=== PATIENT | male | born 1990 | race Caucasian/White ===

== ENCOUNTER 2023-06-10 17:34 | Emergency (ER) | payer SELFPAY ==
[2023-06-10 17:38] VITALS: BP 140/81; BMI 26.2
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
[2023-06-10] MEDS: DACRIOSE EYE WASH SOLUTION 100 ML OPHTH (18:33)
--- NOTE | 2023-06-10 18:52 | EDRN ---
Discharge instructions given to patient by SHELIA Mehta. Verbalized understanding.
[2023-06-11 05:56] LABS: HIV Combo Negative (Negative)
[2023-06-11 06:04] LABS: Hepatitis B Surface Antigen Negative (Negative)
[2023-06-11 06:21] LABS: Hepatitis C Antibody Negative (Negative)
[2023-06-11 07:17] LABS: Hepatitis B Surface Antibody Positive
== END 2023-06-10 18:55 | disposition home or self-care (01) ==
LOC: EMR 17:34
PROVIDERS: Nurse Practitioner; EMERGENCY PHYSICIAN Emergency Medicine; FAMILY PHYSICIAN Nurse Practitioner Family
DX: Z77.21 Contact with and (suspected) exposure to potentially hazardous body fluids (principal); F17.200 Nicotine dependence, unspecified, uncomplicated
CPT/HCPCS: 99283; 86706; 86803; 87340; 87389

== ENCOUNTER 2024-05-18 18:35 | Emergency (ER) | payer BC, SELFPAY ==
[2024-05-18 18:40] VITALS: BP 153/94
--- NOTE | 2024-05-18 21:32 | ED.GENMED ---
History of Present Illness
General
Chief Complaint: Male Genito-Urinary Symptoms
Source: patient
Exam Limitations: none
Time Seen by Provider: 05/18/24 21:00
History of Present Illness
History of Present Illness:
33-year-old male presents complaining of persistent pain to left testicle and scrotum starting about 1 week ago. His husky jumped on him a week ago and landed on his scrotum. He denies hematuria. He denies any discharge or dysuria. Denies any
urinary symptoms or abdominal pain. He has a history of epididymitis. No fevers. No other complaints at this time
Past History
Past History
ED Past Medical History: None
ED Past Surgical History: Other (hernia)
Social History
Tobacco: Smoker
Alcohol: Occasional
Drug: None
Personal: Single
Living: alone
Employment: Employed
Phy Exam
Physical Exam
Physical Exam:
General: Well-appearing male no acute respiratory distress
HEENT normocephalic atraumatic
exam: Circumcised male. Scrotum is not swollen he is tender over the left cycle. Reflex intact no inguinal hernia palpated
Extremities: No cyanosis
Course
Orders/Labs/Results
Orders:
Orders
05/18/24 18:45
US Scrotum Urgent
Comment:
Reason For Exam: pain from dog jumping on him
Vital Signs
Initial and Last Documented VS:
Initial Vital Signs
Temp Pulse Resp BP Pulse Ox
97.7 F 80 16 153/94 100
05/18/24 18:40 05/18/24 18:40 05/18/24 18:40 05/18/24 18:40 05/18/24 18:40
Last Documented Vital Signs
Temp Pulse Resp BP Pulse Ox
97.7 F 80 16 153/94 100
05/18/24 18:40 05/18/24 18:40 05/18/24 18:40 05/18/24 18:40 05/18/24 18:40
MDM/Problems Addressed
Differential Diagnosis Includes:
Patient with left testicular pain. Consider contusion versus hematoma versus torsion versus epididymitis versus hydrocele
Ultrasound scrotum pending
*Critical Care Note
Total Time (30-74mins, 75-104mins- exclusive of procedures): Not Applicable
Update Note
Update Note:
Ultrasound negative for acute finding. This report report was reviewed and performed by [facility]. Suspect underlying contusion. Reassured patient. Stable for discharge
ED Attending Note
-
Portions of this chart may have been created with voice recognition software.� Occasional wrong word or��sound alike� substitutions may have occurred due to the inherent limitations of voice recognition software.
Discharge Plan
Departure
Patient Disposition: Home (Routine Discharge)
Date of Disposition: 05/18/24
Time of Disposition: 22:07
Patient with high blood pressure during this ER visit?: No
Discharge Problem:
Left testicular pain
Prescriptions:
No Action
trazodone 100 MG tablet
100 mg PO HS
desvenlafaxine [Khedezla] 50 MG tablet extended release 24hr
50 mg PO DAILY
hydrocodone-acetaminophen 1 TABLET tablet
1 - 2 tab PO Q4HPRN PRN (Reason: moderate to severe pain) Qty: 30 0RF
Referrals:
Martin Frank MD [Active] -
Maricarmen Moore NP [Family Provider] -
Activity Restrictions/Additional Instructions:
You may use ibuprofen or Tylenol for pain. Use supportive formfitting underwear. Return if needed otherwise follow-up with urology for persistent symptoms
Interventions
Interventions:
*Risk Screen - Suicide Last Done: 05/18/24 18:40
*General Assessment Last Done: 05/18/24 18:40
*ED COVID-19 Vaccine History Last Done: 05/18/24 18:40
*Nursing Disposition Last Done: 05/18/24 22:54
ED-Male Genitourinary Assessment Last Done: 05/18/24 20:23
Discharge Date and Time
Discharge Date/Time: 05/18/24 22:54
Print Language: GERMAN
== END 2024-05-18 22:54 | disposition home or self-care (01) ==
LOC: EMR 18:35
PROVIDERS: EMERGENCY PHYSICIAN Emergency Medicine; FAMILY PHYSICIAN Nurse Practitioner Family
DX: N50.812 Left testicular pain (principal); F17.200 Nicotine dependence, unspecified, uncomplicated
CPT/HCPCS: 99284; 76870; 93976

== ENCOUNTER 2025-03-06 20:03 | Emergency (ER) | payer BC, SELFPAY ==
[2025-03-06 20:08] VITALS: BP 133/75
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
== END 2025-03-06 21:50 | disposition home or self-care (01) ==
LOC: EMR 20:03
PROVIDERS: EMERGENCY PHYSICIAN Emergency Medicine; FAMILY PHYSICIAN Nurse Practitioner Family
DX: S00.81XA Abrasion of other part of head, initial encounter (principal); M54.2 Cervicalgia; R07.89 Other chest pain; W10.9XXA Fall (on) (from) unspecified stairs and steps, initial encounter; F10.129 Alcohol abuse with intoxication, unspecified; F17.200 Nicotine dependence, unspecified, uncomplicated; Z86.79 Personal history of other diseases of the circulatory system
CPT/HCPCS: 99284; 70450; 70486; 71250; 72125